=== PATIENT | female | born 1955 | race Two or more races ===

== ENCOUNTER 2017-11-11 09:45 | Outpatient (CLI) | payer OTHER | END 2017-11-11 09:52 | disposition home or self-care (01) | LOC: RAD 501 09:45 | DX: M25.562 Pain in left knee (principal) ==

== ENCOUNTER 2017-11-14 13:18 | Outpatient (CLI) | payer OTHER | END 2017-11-14 13:29 | disposition home or self-care (01) | LOC: RAD 501 13:18 | DX: M79.672 Pain in left foot (principal); S93.612A Sprain of tarsal ligament of left foot, initial encounter ==

== ENCOUNTER 2018-02-16 08:05 | Outpatient (CLI) | payer OTHER | END 2018-02-16 08:10 | disposition home or self-care (01) | LOC: LAB 08:05 | DX: E55.9 Vitamin D deficiency, unspecified (principal); M85.89 Other specified disorders of bone density and structure, multiple sites; E21.3 Hyperparathyroidism, unspecified; M81.8 Other osteoporosis without current pathological fracture; E56.1 Deficiency of vitamin K; E88.89 Other specified metabolic disorders; E83.42 Hypomagnesemia ==

== ENCOUNTER 2018-06-21 13:06 | Emergency (ER) | payer OTHER ==
[~2018-06-21] VITALS: Ht 165.1 cm; Wt 65.8 kg
[2018-06-21] MEDS ORDERED: HYZAAR 100-12.1 EACH (13:39)
[2018-06-21] MEDS ORDERED: SYNTHROID112 MCG (13:39)
== END 2018-06-21 19:38 | disposition home or self-care (01) ==
LOC: EMR PED 13:06 → ER 13:38 → EMR PED 13:38 → ER 19:38
DX: J09.X2 Influenza due to identified novel influenza A virus with other respiratory manifestations (principal); B96.0 Mycoplasma pneumoniae [M. pneumoniae] as the cause of diseases classified elsewhere